=== PATIENT | male | born 1950 | race Caucasian/White ===

== ENCOUNTER 2020-07-26 10:02 | Outpatient (CLI) | payer MEDICARE, OTHER, SELFPAY ==
[2020-07-26 10:40] LABS: Basophils Percent Auto 0.7 % (0.2-1.2); Eosinophils Absolute Auto 0.3 K/mm3 (0-0.3); Hematocrit 40.9 % (42.0-52.0); Hemoglobin 13.8 g/dL (14.0-18.0); Immature Granulocyte Absolute 0.01 K/mm3 (0.00-0.031); Immature Granulocyte Percent A 0.2 % (0-0.5); Lymphocytes Absolute Auto 2.42 K/mm3 (0.9-3.2); Lymphocytes Percent Auto 43.9 % (18.3-44.2); Mean Corpuscular HGB Conc 33.7 g/dl (32-36); Mean Corpuscular Hemoglobin 32.2 pg (26-34); Mean Corpuscular Volume 95.3 fl (80-100); Mean Platelet Volume 12.3 fl (7.4-10.4); Monocytes Absolute Auto 0.4 K/mm3 (0.1-0.6); Monocytes Percent Auto 7.6 % (2.6-8.5); Neutrophils Absolute Auto 2.3 K/mm3 (1.3-6.7); Neutrophils Percent Auto 41.6 % (45.5-73.1); Platelet Count Result 167 k/mm3 (150-375); Red Blood Count 4.29 M/mm3 (4.6-6.20); Red Cell Distribution Width 12.6 % (11.5-14.5); White Blood Count 5.5 K/mm3 (4.5-10.0)
[2020-07-26 10:49] LABS: INR 1.2; Prothrombin Time 14.4 Seconds (11.1-14.7)
[2020-07-26 10:50] LABS: Partial Thromboplastin Time 26.5 SECONDS (22.3-36.8)
[2020-07-26 10:59] LABS: Anion Gap 7 mmol/L (8-16); Blood Urea Nitrogen 42 mg/dL (9-20); Calcium 9.8 mg/dL (8.4-10.2); Carbon Dioxide 33 mmol/L (22-30); Chloride 100 mmol/L (98-107); Estimated Glomerular Filt Rate 50; Glucose 137 mg/dL (75-110); Potassium 4.2 mmol/L (3.4-5.0); Sodium 140 mmol/L (137-145)
== END 2020-07-26 10:03 | disposition home or self-care (01) ==
LOC: ANHSURGERY 10:07
PROVIDERS: PCP Internal Medicine; Visit Provider Urology
DX: Z01.812 Encounter for preprocedural laboratory examination (principal); C67.9 Malignant neoplasm of bladder, unspecified; I25.10 Atherosclerotic heart disease of native coronary artery without angina pectoris; I10 Essential (primary) hypertension; Z95.1 Presence of aortocoronary bypass graft; Z87.891 Personal history of nicotine dependence
CPT/HCPCS: 36415; 80048; 85025; 85610; 85730; 87086

== ENCOUNTER 2020-08-03 00:51 | Outpatient (CLI) | payer MEDICARE, OTHER, SELFPAY ==
[2020-08-03 18:05] LABS: SARS-CoV-2 RNA PCR Negative
== END 2020-08-03 00:52 | disposition home or self-care (01) ==
LOC: ANHCOVIDDT 00:52
PROVIDERS: PCP Internal Medicine; Visit Provider Urology
DX: Z01.812 Encounter for preprocedural laboratory examination (principal); Z20.828 Contact with and (suspected) exposure to other viral communicable diseases
CPT/HCPCS: 87635; C9803; U0003

== ENCOUNTER 2020-08-07 01:48 | Outpatient (CLI) | payer MEDICARE, OTHER, SELFPAY ==
[2020-08-07 18:17] LABS: SARS-CoV-2 RNA PCR Negative
== END 2020-08-07 01:49 | disposition home or self-care (01) ==
LOC: ANHCOVIDDT 01:48
PROVIDERS: PCP Internal Medicine; Visit Provider Urology
DX: Z01.812 Encounter for preprocedural laboratory examination (principal); Z20.828 Contact with and (suspected) exposure to other viral communicable diseases
CPT/HCPCS: 87635; C9803; U0003

== ENCOUNTER 2020-08-09 01:23 | Day surgery (SDC) | payer MEDICARE, OTHER, SELFPAY ==
[2020-07-24 10:24] VITALS: BMI 31.2
--- NOTE | 2020-08-05 09:36 | PC.NURSE ---
PT STATES NO CHANGE IN HEALTH HX SINCE LAST INTERVIEW ON 07/24/20
[2020-08-09] VITALS (18 sets, daily range): BP systolic 84–157; BP diastolic 51–81; PULSE 52–73; RESP 12–20; TEMP 36.5; O2SAT 93–99
[2020-08-09] MEDS: LACTATED RINGERS 1,000 ML 30 ML IV CONT (07:10)
--- NOTE | 2020-08-09 07:19 | WPDANESEPPF ---
Anes - Initial Pre Proc Eval Procedure: Operation Date: 08/09/20 07:30 Proposed Procedures p Transurethral Resection Bladder Tumor With Mitomycin Instillation - Sheldon Harman MD Date/Time: 08/09/20 07:19 Surgeon: Sheldon Harman MD Pre Op Diagnosis: Bladder Tumor Patient Data Age: 70 Gender: M Height: 5 ft 8 in Weight: 93.3 kg Allergies Allergy/AdvReac Type Severity Reaction Status Date / Time niacin Allergy Unknown JAUNDICE, Verified 08/09/20 07:00 INCREASED LIVER ENZYMES Home Medications Medication Instructions Recorded Confirmed Type atenolol 25 mg PO DAILY 09/06/19 08/09/20 History clopidogrel [Plavix] 75 mg PO DAILY 09/06/19 08/09/20 History fenofibrate 160 mg PO DAILY 09/06/19 08/09/20 History omeprazole 20 mg PO DAILY 09/06/19 08/09/20 History rosuvastatin 40 mg PO DAILY 09/06/19 08/09/20 History aspirin [Aspir-81] 81 mg PO DAILY 07/24/20 08/09/20 History cholecalciferol (vitamin D3) 50 mcg PO DAILY 07/24/20 08/09/20 History escitalopram oxalate [Lexapro] 20 mg PO HS 07/24/20 08/09/20 History hydrochlorothiazide 25 mg PO DAILY 07/24/20 08/09/20 History losartan 100 mg PO DAILY 07/24/20 08/09/20 History Patient hx anesthesia problems: none Family hx anesthesia problems: none PMFSH Past Medical History Medical History CAD (coronary artery disease) HTN (hypertension) NANCY (obstructive sleep apnea) Surgical History Surgical History Hx of CABG Social History Social History Smoking status: Former smoker Tobacco type: cigarettes Second hand tobacco smoke exposure: No Additional smoking assessment comments: STATES 1/2PK/DAY/20+YRS QUIT 1995 Alcohol intake: current Alcohol use details: STATES MAYBE 6 DRINKS/YEAR Substance use: never Living arrangements: with family Spiritual care concerns: No Anes - Eval Final PreProcedure Day of Procedure 08/09/20 07:19 Patient weight: obese Lungs: clear to auscultation Airway: Mallampati scale class II Neurological: alert and oriented Last oral intake: >/= 8 hours ASA classification: III Emergent: no Anesthetic plan: proceed Anesthesia type and monitoring: general and standard monitoring Informed Consent: The patient's anesthetic plan and its attendant risks and benefits were discussed with the patient/family/POA. Questions were solicited and answers provided to the satisfaction of the patient/family/POA.
--- NOTE | 2020-08-09 07:25 | WPDHPUPDATE1 ---
History and Physical Update Update Date/Time: 08/09/20 07:25 History and Physical has been reviewed, including an updated exam of the patient. There are NO changes in the patient's condition. Risks, benefits, and alternatives have been discussed and questions answered. Patient agrees to proceed with procedure.
[2020-08-09] MEDS: ceFAZolin 2 GM/D5W 50 ML 2 GM/50 ML BAG IVPB (07:28)
[2020-08-09] MEDS: LIDOCAINE HCL 2% GEL UROJET 10 ML PKG MUCOUS MEM (07:46)
--- NOTE | 2020-08-09 07:57 | P.OP_ITS ---
Procedure Note - Detailed Date of procedure: 08/09/20 Pre-op diagnosis: Bladder Tumor Post-op diagnosis: same Procedure performed: Resection of bladder tumor medium size with fulguration Description of procedure: The patient was brought to the operative suite where he is prepped and draped in a routine sterile fashion while in the dorsal lithotomy position. This is done after the uneventful administration of systemic sedation. A 24F resectoscope sheath was placed in the bladder and the bladder is circumferentially inspected carefully. 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 . This area is resected in its entirety with an attempt made to include detrusor muscle for pathological evaluation of invasion. The base and periphery of this resected side is cauterized with a ball electrode. There was also an area of irregularity along the posterior wall near the floor which was sent as a separate specimen fulgurated. We did fulgurate some erythematous areas around the resected site also. Patient does have an enlarged prostate with a median lobe. The bladder is emptied and the resectoscope was removed. 2% viscous lidocaine was inserted urethra. Sixteen [place] Lopez was placed with 10 cc in the balloon. This will be used to administer mitomycin in the recovery room. The patient is taken to the recovery room having tolerated this procedure well. Anesthesia: GLMA Surgeon: Sheldon Harman MD Drains: Yes Packing: No Pathology: yes Complications: No immediate complications Condition: stable Disposition: PACU
--- NOTE | 2020-08-09 08:33 | SUR.PHASEI ---
0813 DR JACOME INSTILLED MITOMYCIN INTO PTS BLADDER. SARKAR CATHETER PLUGGED. PT CURRENTLY SUPINE.
--- NOTE | 2020-08-09 09:03 | PM.PROC ---
Procedure Note - Detailed Date of procedure: 08/09/20 Pre-op diagnosis: Bladder Tumor Post-op diagnosis: same Procedure performed: Mitomycin installation Description of procedure: Patient is in the recovery room at this time. Sixteen [place] Lopez is in place. We injected the mitomycin 40 mg/40 cc without any difficulty. Patient is instructed to rotate every 15 minutes. Catheter was removed at termination of procedure. Anesthesia: none Surgeon: Sheldon Harman MD Drains: Yes Packing: No Pathology: none sent Complications: No immediate complications Condition: stable Disposition: PACU
[2020-08-09] MEDS: fentaNYL CITRATE INJ (*CRX) 100 MCG/2 ML VIAL 25 MCG IV PUSH ×4 (09:18→13:25)
[2020-08-09] MEDS: HYOSCYAMINE SULFATE 0.125 MG TABLET PO (10:15)
[2020-08-09] MEDS: oxyCODONE HCL (*CRX) 5 MG TAB IR PO (11:07)
--- NOTE | 2020-08-09 15:55 | SUR.PHASEII ---
1045 - pt's bladder scanned - 60 mls in bladder 1150 - dr. saleh called in regards to pt not being able to urinate. 1200 - bladder scanned with 250-300 mls of urine noted. dr. saleh called and order received for catheter. pt to go home with catheter and can remove it in the morning.
== END 2020-08-09 14:30 | disposition home or self-care (01) ==
PROVIDERS: PCP Internal Medicine; Visit Provider Urology
PROC: 0TBB8ZZ Excision of Bladder, Via Natural or Artificial Opening Endoscopic (ICD-10-PCS; CPT 52234; principal; 2020-08-09 07:30)
DX: N32.89 Other specified disorders of bladder (principal); Z85.51 Personal history of malignant neoplasm of bladder; I10 Essential (primary) hypertension; I25.10 Atherosclerotic heart disease of native coronary artery without angina pectoris; G47.33 Obstructive sleep apnea (adult) (pediatric); Z79.02 Long term (current) use of antithrombotics/antiplatelets; Z79.82 Long term (current) use of aspirin; Z87.891 Personal history of nicotine dependence; E66.9 Obesity, unspecified; Z68.31 Body mass index [BMI] 31.0-31.9, adult
CPT/HCPCS: 52234; 51720; 88305; A9270; J0690; J1100; J2250; J2405; J2704; J3010; J7120; J9280

== ENCOUNTER 2021-06-02 07:54 | Inpatient (IN) | payer MEDICARE, OTHER, SELFPAY ==
--- NOTE | ~2021-06-02 | US_ITS ---
EXAMINATION: US right upper quadrant DATE: 06/02/2021 08:38 INDICATION: Right upper quadrant abdominal pain. TECHNIQUE: Multiple grayscale and Doppler ultrasound images of the abdomen were obtained. COMPARISON: None FINDINGS: The visualized portions of the head of the pancreas are normal. There is diffuse hepatic st eatosis. There is normal flow in main portal vein. The gallbladder is normal in size. No gallstones o r gallbladder wall thickening. There was a positive sonographic Pal sign. The common duct is marianne l and measures 5 mm. IMPRESSION: 1. Normal gallbladder. No etiology for the positive sonographic Pal sign. 2. Diffuse hepatic steatosis. Reviewed, dictated and finalized at location A.
--- NOTE | ~2021-06-02 | CT_ITS ---
EXAMINATION: CT abdomen pelvis w con DATE: 06/02/2021 09:36 INDICATION: Right upper quadrant abdominal pain TECHNIQUE: Computed tomography (CT) of the abdomen and pelvis was performed with 100 mL Omnipaque-350 intravenous contrast. Automated exposure control and iterative reconstruction technique were employe d. The dose-length product was 894.55 mGy-cm. COMPARISON: None FINDINGS: Minimal atelectasis in the bilateral lower lobes. Heart size is normal. No pericardial or pleural eff usion. Postoperative change of prior median sternotomy and likely coronary artery bypass grafting. Di ffuse hepatic steatosis. Gallbladder is dilated to 4.5 cm without wall thickening but with small amou nt of pericholecystic stranding and fluid consistent with likely early acute cholecystitis. Pancreas, spleen and bilateral adrenal glands are normal. Bilateral renal cysts measuring up to 2.9 cm on the left and 2.1 cm on the right. There is mild colonic diverticulosis with a sigmoid predominance. Ther e is no adjacent inflammatory change to suggest diverticulitis. Small bowel and appendix are normal. Prostatomegaly. Trace amount of gas in the nondependent bladder. No abscess or free intraperitoneal g as. No pathologically enlarged abdominal or pelvic lymphadenopathy. Severe lumbar and lower thoracic spondylosis. IMPRESSION: 1. Gallbladder dilated to 4.5 cm with small amount pericholecystic stranding and fluid consistent wit h likely early acute cholecystitis. 2. Trace amount of gas in the nondependent bladder. Correlate with urinalysis and for recent instrume ntation or Lopez catheterization. 3. Diffuse hepatic steatosis. 4. Mild sigmoid diverticulosis. 5. Prostatomegaly. Reviewed, dictated and finalized at location B. IMPRESSION: 1. Gallbladder dilated to 4.5 cm with small amount pericholecystic stranding an d fluid consistent with likely early acute cholecystitis. 2. Trace amount of gas in the nondependent bladder. Correlate with urinalysis a nd for recent instrumentation or Lopez catheterization. 3. Diffuse hepatic steatosis. 4. Mild sigmoid diverticulosis. 5. Prostatomegaly.
--- NOTE | 2021-06-02 08:11 | ECG_ITS ---
Measurements Intervals [place] Rate: 68 P: 50 DE: 255 QRS: -9 QRSD: 170 T: 25 QT: 445 QTc: 477 Interpretive Statements SINUS RHYTHM WITH FIRST DEGREE AV BLOCK VENTRICULAR PREMATURE COMPLEX RIGHT BUNDLE BRANCH BLOCK ABNORMAL ECG Electronically Signed On 06-02-2021 9:18:56 CDT by Francisco De La Garza D.O.
[2021-06-02 08:13] VITALS: BP 151/80; PULSE 72; RESP 17; TEMP 36.6; O2SAT 100
[2021-06-02 08:25] LABS: Basophils Percent Auto 0.4 % (0.2-1.2); Eosinophils Absolute Auto 0.2 K/mm3 (0-0.3); Eosinophils Percent Auto 2.8 % (0-4.4); Hemoglobin 14.8 g/dL (14.0-18.0); Immature Granulocyte Absolute 0.02 K/mm3 (0.00-0.031); Immature Granulocyte Percent A 0.2 % (0-0.5); Lymphocytes Absolute Auto 1.63 K/mm3 (0.9-3.2); Lymphocytes Percent Auto 19.7 % (18.3-44.2); Mean Corpuscular HGB Conc 33.6 g/dl (32-36); Mean Corpuscular Hemoglobin 32.8 pg (26-34); Mean Corpuscular Volume 97.6 fl (80-100); Mean Platelet Volume 12.2 fl (7.4-10.4); Monocytes Absolute Auto 0.6 K/mm3 (0.1-0.6); Monocytes Percent Auto 7.2 % (2.6-8.5); Neutrophils Absolute Auto 5.8 K/mm3 (1.3-6.7); Neutrophils Percent Auto 69.7 % (45.5-73.1); Platelet Count Result 160 k/mm3 (150-375); Red Blood Count 4.51 M/mm3 (4.6-6.20); Red Cell Distribution Width 12.5 % (11.5-14.5); White Blood Count 8.3 K/mm3 (4.5-10.0)
[2021-06-02] MEDS: FAMOTIDINE 20 MG/2 ML VIAL IV PUSH (08:36)
[2021-06-02] MEDS: SODIUM CHLORIDE 0.9% IV 1,000 ML 150 ML IV CONT (08:36)
[2021-06-02 08:42] LABS: Alanine Aminotransferase 39 U/L (4-50); Albumin Level 4.7 g/dL (3.5-5.1); Alkaline Phosphatase 62 U/L (38-126); Anion Gap 10 mmol/L (8-16); Aspartate Amino Transferase 41 U/L (17-59); Bilirubin,Total 0.8 mg/dL (0.2-1.3); Blood Urea Nitrogen 28 mg/dL (9-20); Calcium 10.1 mg/dL (8.4-10.2); Carbon Dioxide 26 mmol/L (22-30); Chloride 102 mmol/L (98-107); Estimated CRCL calculation 65 ml/min; Estimated Glomerular Filt Rate > 60; Glucose 196 mg/dL (65-110); Lipase 148 U/L (23-300); Potassium 3.6 mmol/L (3.4-5.0); Sodium 138 mmol/L (137-145)
[2021-06-02 09:02] LABS: Add Urine Microscopic? YES; Appearance Urine Clear (Clear); Bilirubin Urine Negative (Negative); Blood Urine Negative (Negative); Color Urine Yellow (Yellow); Glucose Urine UA 2+ mg/dL (Negative); Ketones Urine Negative (Negative); Leukocyte Esterase Ur Negative LEU/UL (Negative); Mucus Urine Rare /lpf; Nitrate Urine Negative (Negative); Protein Urine 1+ mg/dL (Negative); RBC Urine 0-2 /hpf (0-2); Specific Grav Ur 1.026 (1.001-1.035); Squamous Epithelial Cell Urine Rare /hpf (Few)
[2021-06-02] MEDS: MORPHINE SULFATE (*CRX) 4 MG/ML INJ IV PUSH (09:40)
[2021-06-02 10:47] VITALS: BP 140/85; PULSE 88; RESP 17; O2SAT 100
--- NOTE | 2021-06-02 11:08 | ED.ABDPAIN ---
HPI - Abdominal Pain General Chief Complaint: Abdominal Pain Stated Complaint: Abd pain Time Seen by Provider: 06/02/21 07:58 Source: patient Mode of arrival: ambulatory Limitations: no limitations History of Present Illness HPI narrative: 71-year-old with a history of hypertension, GERD, CAD s/p CABG here with complaints of right upper quadrant and epigastric pain since 330 this morning. Patient states that pain woke him up from sleep. Patient states that pain is constant in nature. Denies nausea vomiting no history of fever or chills. He denies any chest pain. Related Data Home Medications Medication Instructions Recorded Confirmed atenolol 25 mg PO DAILY 09/06/19 08/09/20 clopidogrel [Plavix] 75 mg PO DAILY 09/06/19 08/09/20 fenofibrate 160 mg PO DAILY 09/06/19 08/09/20 omeprazole 20 mg PO DAILY 09/06/19 08/09/20 rosuvastatin 40 mg PO DAILY 09/06/19 08/09/20 aspirin 81 mg PO DAILY 07/24/20 08/09/20 cholecalciferol (vitamin D3) 50 mcg PO DAILY 07/24/20 08/09/20 escitalopram oxalate [Lexapro] 20 mg PO HS 07/24/20 08/09/20 hydrochlorothiazide 25 mg PO DAILY 07/24/20 08/09/20 losartan 100 mg PO DAILY 07/24/20 08/09/20 Allergies Allergy/AdvReac Type Severity Reaction Status Date / Time niacin Allergy Unknown JAUNDICE, Verified 08/09/20 07:00 INCREASED LIVER ENZYMES Review of Systems Review of Systems: All systems reviewed & are unremarkable except as noted in HPI and below Constitutional: Constitutional: Reports no additional constitutional complaints Eyes: Eyes: Reports no additional eye complaints ENT: Reports system reviewed and no additional complaints, except as documented Cardiovascular: Cardiovascular: Reports no additional cardiovascular complaints Respiratory: Respiratory: Reports no additional respiratory complaints Gastrointestinal: Gastrointestinal: Reports as per HPI Musculoskeletal: Musculoskeletal: Reports no additional musculoskeletal complaints Integumentary/Breasts: Skin/Breast: Reports system reviewed and no additional complaints, except as docu Neurologic: Reports system reviewed and no additional complaints, except as documented PMFSH Past Medical History Medical History CAD (coronary artery disease) HTN (hypertension) NANCY (obstructive sleep apnea) Surgical History Surgical History Hx of CABG Social History Social History Smoking status: Former smoker Tobacco type: cigarettes Second hand tobacco smoke exposure: No Additional smoking assessment comments: STATES 1/2PK/DAY/20+YRS QUIT 1995 Alcohol intake: current Alcohol use details: STATES MAYBE 6 DRINKS/YEAR Substance use: never Spiritual care concerns: No Exam Narrative: GENERAL: Well-appearing, well-nourished, and in no acute distress. HEAD: Normocephalic, atraumatic. EYES: PERRLA and EOMI. NECK: Supple. CHEST: Clear to auscultation. No respiratory distress. HEART: Regular rate and rhythm. No murmur heard. Normal peripheral pulses. ABDOMEN: Soft, tender in the epigastric and right upper quadrant area, nondistended, normal active bowel sounds. EXTREMITIES: Normal range of motion. No edema. SKIN: Warm, dry, no rash. NEURO: No focal deficits. Alert and oriented x3. PSYCH: Normal mood and affect. Course Course Emergency Course: Patient continues to have pain in the right upper quadrant area. I have discussed lab work and CT findings with the patient. Discussed with Dr. Vasquez agreed to admit the patient Vital Signs Vital signs: Vital Signs Temperature 36.6 C 06/02/21 08:13 Pulse Rate 72 06/02/21 08:13 Respiratory Rate 17 06/02/21 08:13 Blood Pressure 151/80 H 06/02/21 08:13 Pulse Oximetry 100 06/02/21 08:13 Temperature 36.6 C 06/02/21 08:13 Pulse Rate 88 06/02/21 10:47 Respiratory Rate 17
[2021-06-02] MEDS: ERTAPENEM 1 GM/NS 50 ML 1 GM/50 ML BAG IVPB (12:10)
[2021-06-02 13:44] VITALS: BP 147/80; PULSE 61; RESP 18; O2SAT 100
[2021-06-02 15:11] LABS: Glucose Point of Care 140 mg/dl (65-105)
[2021-06-02 16:06] VITALS: BP 136/87; PULSE 88; RESP 17; O2SAT 100
[2021-06-02] MEDS: SODIUM CHLORIDE 0.9% IV 1,000 ML 125 ML IV CONT (17:43)
--- NOTE | 2021-06-02 17:43 | PM.IMHP ---
H&P: HPI History of Present Illness Date/Time: 06/02/21 17:43 Chief Complaint: Right upper quadrant pain Narrative: this is a 71-year-old man who presented to the emergency department this morning with right upper quadrant pain. He states that the pain started around 3:00 a.m. in the morning. He continued to have worsening pain and was also complaining of some general body aches. He denies any fevers or chills, but states he did feel slightly feverish. Has pain continued throughout the morning, therefore he told his when she woke up and he came to the emergency department for further evaluation. He has never had any symptoms like this in the past. He did eat fried chicken around lunch time yesterday, but only ate a sandwich for dinner. He has continued to have constant pain since the pain for started. Review of Systems Review of Systems: All systems reviewed & are unremarkable except as noted in HPI and below Eyes: Eyes: Denies change in vision ENT: Denies hearing loss, Denies neck pain and Denies sore throat Cardiovascular: Cardiovascular: Denies chest pain and Denies dyspnea Respiratory: Respiratory: Denies cough, Denies dyspnea and Denies wheezing Gastrointestinal: Gastrointestinal: Reports as per HPI Genitourinary: Genitourinary: Denies hematuria and Denies dysuria Musculoskeletal: Musculoskeletal: Denies arthralgias, Denies joint swelling and Denies neck pain Allergic/Immunologic: Allergic/Immunologic: Denies wheezing [facility] Past Medical History Medical History (Updated 06/02/21 @ 17:47 by Damian Vasquez DO) CAD (coronary artery disease) HTN (hypertension) NANCY (obstructive sleep apnea) Surgical History Surgical History Hx of CABG Social History Social History Smoking status: Former smoker Tobacco type: cigarettes Second hand tobacco smoke exposure: No Additional smoking assessment comments: STATES 1/2PK/DAY/20+YRS QUIT 1995 Alcohol intake: current Alcohol use details: STATES MAYBE 6 DRINKS/YEAR Substance use: never Spiritual care concerns: No Meds Home Medications and Allergies Home Medications Medication Instructions Recorded Confirmed Type atenolol 25 mg PO DAILY 09/06/19 08/09/20 History clopidogrel [Plavix] 75 mg PO DAILY 09/06/19 08/09/20 History fenofibrate 160 mg PO DAILY 09/06/19 08/09/20 History omeprazole 20 mg PO DAILY 09/06/19 08/09/20 History rosuvastatin 40 mg PO DAILY 09/06/19 08/09/20 History aspirin 81 mg PO DAILY 07/24/20 08/09/20 History cholecalciferol (vitamin D3) 50 mcg PO DAILY 07/24/20 08/09/20 History escitalopram oxalate [Lexapro] 20 mg PO HS 07/24/20 08/09/20 History hydrochlorothiazide 25 mg PO DAILY 07/24/20 08/09/20 History losartan 100 mg PO DAILY 07/24/20 08/09/20 History Allergies Allergy/AdvReac Type Severity Reaction Status Date / Time niacin Allergy Unknown JAUNDICE, Verified 08/09/20 07:00 INCREASED LIVER ENZYMES Vital Signs Vital Signs - 24 hr 06/02/21 08:13 06/02/21 10:47 06/02/21 13:44 Temperature 36.6 C Pulse Rate 72 88 61 Respiratory Rate 17 17 18 Blood Pressure 151/80 H 140/85 147/80 H Pulse Oximetry 100 100 100 06/02/21 16:06 Temperature Pulse Rate 88 Respiratory Rate 17 Blood Pressure 136/87 Pulse Oximetry 100 Exam Const: General: alert; No acute distress Orientation/consciousness: patient oriented x3 Limitations: no limitations HENMT: Head: normocephalic and atraumatic Ears: hearing grossly normal bilaterally General nose exam: Normal external nose present and Normal nares present Mouth: Yes Normal oral and palatal mucosa present and Yes moist mucous membranes Eyes: General: appearance normal, both eyes and all related structures Conjunctivae: conjunctivae normal Sclera: sclerae normal Pupils: Equal, round and reactive pupils present EOM: EOMs intact
[2021-06-02 17:48] VITALS: BP 149/78; PULSE 63; RESP 18; TEMP 35.7; O2SAT 100
--- NOTE | 2021-06-02 18:12 | ADMGEN ---
This patient, Archie Wallace, was admitted to Medical Room 342-01. Patient/family oriented to hospital policies and general routines including ID bracelet, bed and alarms, visiting hours, pain management, procedures, bathroom and other care routines, personal items, smoking policy, room service/diet, and visiting hours. Information on how to activate the Rapid Response Team has been discussed. Patient/Family are encouraged to report perceived risks to care and to ask questions if they do not understand what they are told or what they should do.
[2021-06-02 18:41] LABS: Glucose Point of Care 112 mg/dl (65-105)
[2021-06-02 20:24] VITALS: BP 130/78; PULSE 67; RESP 16; TEMP 35.9; O2SAT 97
[2021-06-02 23:20] LABS: Glucose Point of Care 98 mg/dl (65-105)
[2021-06-03] VITALS (14 sets, daily range): BP systolic 102–140; BP diastolic 54–71; PULSE 66–85; RESP 12–20; TEMP 35.9–37.2; O2SAT 90–100
[2021-06-03] MEDS: SODIUM CHLORIDE 0.9% IV 1,000 ML 125 ML IV CONT (02:25)
[2021-06-03 05:55] LABS: Glucose Point of Care 122 mg/dl (65-105)
[2021-06-03 06:10] LABS: Basophils Percent Auto 0.6 % (0.2-1.2); Eosinophils Absolute Auto 0.2 K/mm3 (0-0.3); Eosinophils Percent Auto 4.2 % (0-4.4); Hematocrit 38.9 % (42.0-52.0); Immature Granulocyte Absolute 0.01 K/mm3 (0.00-0.031); Immature Granulocyte Percent A 0.2 % (0-0.5); Lymphocytes Absolute Auto 1.94 K/mm3 (0.9-3.2); Mean Corpuscular HGB Conc 33.4 g/dl (32-36); Mean Corpuscular Volume 95.8 fl (80-100); Mean Platelet Volume 11.8 fl (7.4-10.4); Monocytes Absolute Auto 0.5 K/mm3 (0.1-0.6); Monocytes Percent Auto 8.8 % (2.6-8.5); Neutrophils Absolute Auto 2.6 K/mm3 (1.3-6.7); Neutrophils Percent Auto 49.2 % (45.5-73.1); Platelet Count Result 144 k/mm3 (150-375); Red Blood Count 4.06 M/mm3 (4.6-6.20); Red Cell Distribution Width 12.2 % (11.5-14.5); White Blood Count 5.3 K/mm3 (4.5-10.0)
[2021-06-03 06:13] LABS: Alanine Aminotransferase 29 U/L (4-50); Alkaline Phosphatase 46 U/L (38-126); Anion Gap 8 mmol/L (8-16); Aspartate Amino Transferase 35 U/L (17-59); Bilirubin,Total 0.9 mg/dL (0.2-1.3); Blood Urea Nitrogen 19 mg/dL (9-20); Calcium 8.9 mg/dL (8.4-10.2); Carbon Dioxide 26 mmol/L (22-30); Chloride 101 mmol/L (98-107); Estimated CRCL calculation 80 ml/min; Estimated Glomerular Filt Rate > 60; Glucose 123 mg/dL (65-110); Potassium 3.5 mmol/L (3.4-5.0); Sodium 135 mmol/L (137-145)
--- NOTE | 2021-06-03 08:15 | WPDANESEPPF ---
Anes - Initial Pre Proc Eval Procedure: Operation Date: 06/03/21 12:00 Proposed Procedures p Laparoscopic Cholecystectomy,Possible Open - Damian Vasquez DO Date/Time: 06/03/21 08:15 Surgeon: Damian Vasquez DO Pre Op Diagnosis: Acute cholecystitis Patient Data Age: 71 Gender: M Height: 1.73 m Weight: 94.09 kg Last Vital Signs Temp 36.2 C L 06/03/21 05:39 Pulse 66 06/03/21 05:39 Resp 16 06/03/21 05:39 BP 135/69 06/03/21 05:39 Pulse Ox 98 06/03/21 05:39 Allergies Allergy/AdvReac Type Severity Reaction Status Date / Time niacin Allergy Unknown JAUNDICE, Verified 08/09/20 07:00 INCREASED LIVER ENZYMES Home Medications Medication Instructions Recorded Confirmed Type atenolol 25 mg PO DAILY 09/06/19 06/02/21 History clopidogrel [Plavix] 75 mg PO DAILY 09/06/19 06/02/21 History fenofibrate 160 mg PO DAILY 09/06/19 06/02/21 History omeprazole 20 mg PO DAILY 09/06/19 06/02/21 History rosuvastatin 40 mg PO DAILY 09/06/19 06/02/21 History aspirin 81 mg PO DAILY 07/24/20 06/02/21 History cholecalciferol (vitamin D3) 50 mcg PO DAILY 07/24/20 06/02/21 History escitalopram oxalate [Lexapro] 20 mg PO HS 07/24/20 06/02/21 History hydrochlorothiazide 25 mg PO DAILY 07/24/20 06/02/21 History losartan 100 mg PO DAILY 07/24/20 06/02/21 History ezetimibe [Zetia] 10 mg PO DAILY 06/02/21 06/02/21 History Laboratory Tests 06/02/21 06/02/21 06/02/21 08:18 08:18 08:34 WBC 8.3 K/mm3 K/mm3 (4.5-10.0) RBC 4.51 M/mm3 L M/mm3 (4.6-6.20) Hgb 14.8 g/dL g/dL (14.0-18.0) Hct 44.0 % % (42.0-52.0) MCV 97.6 fl fl (80-100) MCH 32.8 pg pg (26-34) MCHC 33.6 g/dl g/dl (32-36) RDW 12.5 % % (11.5-14.5) Plt Count 160 k/mm3 k/mm3 (150-375) MPV 12.2 fl H fl (7.4-10.4) Immature Gran % (Auto) 0.2 % % (0-0.5) Neut % (Auto) 69.7 % % (45.5-73.1) Lymph % (Auto) 19.7 % % (18.3-44.2) [place] % (Auto) 7.2 % % (2.6-8.5) Eos % (Auto) 2.8 % % (0-4.4) Baso % (Auto) 0.4 % % (0.2-1.2) Lymph # (Auto) 1.63 K/mm3 K/mm3 (0.9-3.2) [place] # (Auto) 0.6 K/mm3 K/mm3 (0.1-0.6) Eos # (Auto) 0.2 K/mm3 K/mm3 (0-0.3) Baso # (Auto) 0.0 K/mm3 K/mm3 (0.0-0.1) Abs Immat Gran (auto) 0.02 K/mm3 K/mm3 (0.00-0.031) Absolute Neuts (auto) 5.8 K/mm3 K/mm3 (1.3-6.7) Absolute Nucleated RBC 0.0 K/mm3 K/mm3 (0.0-0.012) Nucleated RBC % 0.0 % % (0.0-0.2) Sodium 138 mmol/L mmol/L (137-145) Potassium 3.6 mmol/L mmol/L (3.4-5.0) Chloride 102 mmol/L mmol/L (98-107) Carbon Dioxide 26 mmol/L mmol/L (22-30) Anion Gap 10 mmol/L mmol/L (8-16) BUN 28 mg/dL H D mg/dL (9-20) Creatinine 1.00 mg/dL mg/dL (0.7-1.3) Estim Creat Clear Calc 65 ml/min ml/min Estimated GFR > 60 (59 - ) Glucose 196 mg/dL H mg/dL (65-110) POC Capillary Glucose Calcium 10.1 mg/dL mg/dL (8.4-10.2) Total Bilirubin 0.8 mg/dL mg/dL (0.2-1.3) AST 41 U/L U/L (17-59) ALT 39 U/L U/L (4-50) Alkaline Phosphatase 62 U/L U/L (38-126) Total Protein 8.0 g/dL g/dL (6.3-8.2) Albumin 4.7 g/dL g/dL (3.5-5.1) Lipase 148 U/L U/L (23-300) Urine Color Yellow (Yellow) Urine Appearance Clear (Clear) Urine pH 5.0 (5.0-9.0) Ur Specific [place] 1.026 (1.001-1.035) Urine Protein 1+ mg/dL H mg/dL (Negative) Urine Glucose (UA) 2+ mg/dL H mg/dL (Negative) Urine Ketones Negative mg/dL mg/dL (Negative) Ur Blood (Man) Negative (Negative) Urine Nitrate Negative (Negative) Urine Bilirubin Negative (
--- NOTE | 2021-06-03 09:54 | PM.CNCAR ---
Assessment and Plan Assessment and plan (1) Preop cardiovascular exam: Code(s): Z01.810 - Encounter for preprocedural cardiovascular examination Status: Acute Assessment and Plan: Patient had a coronary angiogram in October of 2020. No intravitreal performed at that time. He has no anginal symptoms and can perform greater than 4 Mets. No further testing is needed prior to his laparoscopic cholecystectomy. His aspirin and clopidogrel have been on hold and therefore would recommend simply proceeding with surgery. Will resume his atenolol 25 mg daily. He should have his other home regimen reinstituted postoperatively including is aspirin and clopidogrel when okay with surgery. His potassium is low normal give him 40 mEq of potassium chloride p.o. x1 (2) CAD (coronary artery disease): Code(s): I25.10 - Atherosclerotic heart disease of creek coronary artery without angina pectoris Status: Acute Assessment and Plan: As detailed above and Asymptomatic (3) HTN (hypertension): Code(s): I10 - Essential (primary) hypertension Status: Acute Assessment and Plan: At goal (4) NANCY (obstructive sleep apnea): Code(s): G47.33 - Obstructive sleep apnea (adult) (pediatric) Status: Acute Assessment and Plan: On CPAP (5) Hypercholesterolemia: Code(s): E78.00 - Pure hypercholesterolemia, unspecified Status: Acute Assessment and Plan: On high-dose rosuvastatin History of Present Illness History of Present Illness Consult date/time: 06/03/21 09:54 Requesting physician: Damian Vasquez DO Consult reason: pre-op evaluation Reason For Visit: Acute cholecystitis Narrative: Date of service 06/03/2021 Reason for consultation preoperative risk evaluation Requesting provider Dr. 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 Had a bypass in 1995 as well as coronary angioplasty well before that. His last intervention was in 2016. He had a catheterization in October of 2020 at [facility] because of an abnormal stress tests with reported mild ischemia in inferolateral wall. Catheterization showed a patent WEISS graft with a 60% creek LAD disease. There was some kinking and tortuosity of the WEISS graft. Patent stents to the vein graft to the RCA and his chronically occluded circumflex filled via collaterals. He continued to be treated medically at that point. He denies any chest pain, shortness of breath, syncope, presyncope, paroxysmal nocturnal dyspnea, orthopnea, edema palpitations. He is active. Review of Systems Review of Systems: All systems reviewed & are unremarkable except as noted in HPI and below Constitutional: Constitutional: Denies fatigue and Denies weakness Eyes: Eyes: Denies blurry vision ENT: Reports Normal hearing present Cardiovascular: Cardiovascular: Denies chest pain Respiratory: Respiratory: Denies dyspnea Gastrointestinal: Gastrointestinal: Reports abdominal pain Genitourinary: Genitourinary: Denies dysuria Musculoskeletal: Musculoskeletal: Denies back pain and Denies neck pain Integumentary/Breasts: Skin/Breast: Denies dry skin Neurologic: Denies headache(s) and Denies numbness Psychiatric: Psychiatric: Denies anxiety and Denies confusion Endocrine: Endocrine: Denies fatigue and Denies flushing Hematologic/Lymphatic: Hematologic/Lymphatic: Denies easy bleeding and Denies easy bruising Allergic/Immunologic: Allergic/Immunologic: Denies GI upset with certain foods PMFSH Past Medical History Medical History Acute cholecystitis Bladder cancer BPH (benign prostatic hyperplasia) CAD (coronary artery disease) CHF (congestive heart failure) Depression HTN (hypertension) Hx of myocardial infarction Hypercholesterolemia Obesity NANCY (obstructive sleep apnea) Surgical Hi
[2021-06-03] MEDS: LACTATED RINGERS 1,000 ML 30 ML IV CONT ×2 (11:30→13:46)
--- NOTE | 2021-06-03 11:37 | WPDHPUPDATE1 ---
History and Physical Update Update Date/Time: 06/03/21 11:37 History and Physical has been reviewed, including an updated exam of the patient. There are NO changes in the patient's condition. Risks, benefits, and alternatives have been discussed and questions answered. Patient agrees to proceed with procedure.
[2021-06-03] MEDS: ceFAZolin 2 GM/D5W 50 ML 2 GM/50 ML BAG IVPB (12:05)
[2021-06-03] MEDS: BUPIVACAINE/EPINEPHRINE 0.5% 30 ML VIAL INFILTRATE (12:39)
--- NOTE | 2021-06-03 13:29 | W.PM.PROC2 ---
Procedure Note - Detailed Date of Procedure 06/03/21 Pre-op Diagnosis Acute cholecystitis Post-op Diagnosis same Procedure Performed Laparoscopic Cholecystectomy Surgeon Damian Vasquez, DO Anesthesia general and local (0.5% bupivacaine with epinephrine) Indications This is a 71-year-old man who presented to the emergency department yesterday with right upper quadrant abdominal pain that woke him up in the middle the night. He continued to have constant right upper quadrant pain which then brought him to the ED. ultrasound was initially done and this was normal except he did have a positive sonographic Pal sign. CT of his abdomen and pelvis was then obtained and this did show evidence of gallbladder wall thickening and pericholecystic fluid. Discussions were made with the patient about treatment options and decision was made to proceed with laparoscopic cholecystectomy, possible open. Findings Laparoscopic cholecystectomy was performed. The abdomen was entered in the left subcostal region with an Optiview trocar due to the patient's prior surgical history of umbilical hernia repair with mesh. Upon entering the abdomen, adhesions were identified in the mid abdomen. These adhesions also extended into the right upper quadrant. All of the adhesions appeared to involve omentum, and no bowel was identified while taking down these adhesions. The adhesions were carefully taken down using scissors laparoscopically. Electrocautery was used sparingly where there was bleeding noted. Eventually I was able to identify the right lobe of the liver and then I identified the gallbladder. I was then able to complete the remainder of the portion in the typical fashion laparoscopically. The gallbladder did have some gallbladder wall thickening, but no definite gallstones were identified. The cystic duct appeared normal in size. The gallbladder was removed and sent to the lab for pathology. Description of Procedure Procedure as well as risks, benefits, and alternatives were discussed with patient. Written consent was obtained and placed in chart prior to procedure. The patient was brought back to surgical suite. Patient was placed in supine position on operating table. Time-out was done to confirm patient and procedure. Patient was then intubated by the anesthesia department. Abdomen was prepped and draped in sterile fashion using chlorhexidine prep. 0.5% bupivacaine with epinephrine was infiltrated at each site of incision. A 5 millimeter incision was made in the left subcostal region, and a 5 millimeter Optiview trocar was advanced through the abdominal layers under direct visualization. Once inside the abdominal cavity, carbon dioxide was insufflated to create a pneumoperitoneum. The camera was inserted and the abdomen was inspected. Adhesions were identified in the mid abdomen. Another 5 mm incision was made in the left lateral abdomen and a 5 mm trocar was inserted under direct visualization. Laparoscopic adhesiolysis was carried out using Metzenbaum scissors. Eventually all of the adhesions were able to be taken down to visualize the central abdominal wall and right upper quadrant. A 5 mm incision was made just superior and to the right of the umbilicus and a 5 mm trocar was inserted under direct visualization. The patient was placed in reverse Trendelenburg position and rotated slightly to the left. An 11 millimeter incision was made in the subxiphoid region, and an 11 millimeter trocar was inserted under direct visualization. Two 5 millimeter incisions were made in the right upper quadrant, and two 5 millimeter trocars were inserted under direct visualization. The gallbladder was identified and grasped at the fundus and retracted superiorly. It was then grasped at the infundibulum retracted laterally. Careful dissection around the neck of the gallbladder was performed using blunt dissection with a [place] grasper and hook electrocautery. The cystic
[2021-06-03 14:08] LABS: Glucose Point of Care 167 mg/dl (65-105)
[2021-06-03] MEDS: atenoloL 25 MG TABLET PO (16:56)
[2021-06-03] MEDS: HYDROcodone/acetaminophen (*CRX) 5-325 MG TABLET 1 TAB PO (17:00)
[2021-06-03] MEDS: LACTATED RINGERS 1,000 ML 100 ML IV CONT (17:00)
[2021-06-03 18:21] LABS: Glucose Point of Care 159 mg/dl (65-105)
[2021-06-04 01:06] VITALS: BP 110/62; PULSE 75; RESP 18; TEMP 36; O2SAT 94
[2021-06-04 04:42] VITALS: BP 120/68; PULSE 64; RESP 18; TEMP 36.2; O2SAT 95
[2021-06-04 05:59] LABS: Hematocrit 38.2 % (42.0-52.0); Hemoglobin 12.6 g/dL (14.0-18.0); Mean Platelet Volume 12.3 fl (7.4-10.4); Platelet Count Result 150 k/mm3 (150-375); Red Blood Count 3.94 M/mm3 (4.6-6.20); Red Cell Distribution Width 12.2 % (11.5-14.5); White Blood Count 8.7 K/mm3 (4.5-10.0)
[2021-06-04 06:09] LABS: Anion Gap 4 mmol/L (8-16); Blood Urea Nitrogen 18 mg/dL (9-20); Calcium 9.2 mg/dL (8.4-10.2); Carbon Dioxide 29 mmol/L (22-30); Chloride 104 mmol/L (98-107); Estimated CRCL calculation 59 ml/min; Estimated Glomerular Filt Rate > 60; Glucose 156 mg/dL (65-110); Potassium 4.6 mmol/L (3.4-5.0); Sodium 137 mmol/L (137-145)
[2021-06-04 10:00] VITALS: BP 105/54; PULSE 50; RESP 16; TEMP 36.1; O2SAT 96
--- NOTE | 2021-06-04 10:34 | PM.PNCARD ---
Progress Note: A&P Assessment and Plan (1) Preop cardiovascular exam: Code(s): Z01.810 - Encounter for preprocedural cardiovascular examination Status: Acute Assessment and Plan: Patient had a coronary angiogram in October of 2020. He is doing fine at this point. He did well with his operation and my recommendation is to resume his cardiac regimen. Recommend starting his aspirin and clopidogrel if okay with surgery. He should be discharged with a standard home regimen including statin, fenofibrate, Zetia, losartan, hydrochlorothiazide and atenolol in addition to dual anti-platelet therapy. Okay for discharge from my perspective (2) CAD (coronary artery disease): Code(s): I25.10 - Atherosclerotic heart disease of [place] coronary artery without angina pectoris Status: Acute Assessment and Plan: As detailed above and Asymptomatic (3) HTN (hypertension): Code(s): I10 - Essential (primary) hypertension Status: Acute Assessment and Plan: At goal (4) NANCY (obstructive sleep apnea): Code(s): G47.33 - Obstructive sleep apnea (adult) (pediatric) Status: Acute Assessment and Plan: On CPAP (5) Hypercholesterolemia: Code(s): E78.00 - Pure hypercholesterolemia, unspecified Status: Acute Assessment and Plan: On high-dose rosuvastatin Subjective Date/time seen: 06/04/21 10:34 Interval history: 71-year-old with cholecystitis. Date of service 06/04/2021: He did well with surgery ST. Has some abdominal soreness but otherwise doing okay and has no chest pain or shortness of breath. Review of Systems Review of Systems: All systems reviewed & are unremarkable except as noted in HPI and below Constitutional: Constitutional: Denies fatigue, Denies headache(s) and Denies weakness Eyes: Eyes: Denies blurry vision ENT: Reports Normal hearing present, Denies headache(s) and Denies neck pain Cardiovascular: Cardiovascular: Denies chest pain and Denies dyspnea Respiratory: Respiratory: Denies dyspnea Gastrointestinal: Gastrointestinal: Reports abdominal pain Genitourinary: Genitourinary: Denies dysuria Musculoskeletal: Musculoskeletal: Denies back pain, Denies neck pain and Denies numbness Integumentary/Breasts: Skin/Breast: Denies dry skin Neurologic: Reports Normal hearing present, Denies confusion, Denies headache(s), Denies numbness and Denies weakness Psychiatric: Psychiatric: Denies anxiety and Denies confusion Endocrine: Endocrine: Denies fatigue and Denies flushing Hematologic/Lymphatic: Hematologic/Lymphatic: Denies easy bleeding and Denies easy bruising Allergic/Immunologic: Allergic/Immunologic: Denies GI upset with certain foods Exam Narrative: Alert oriented appears stated age Const: General: comfortable and no acute distress; No confusion Orientation/consciousness: No confusion HENMT: General nose exam: Normal nares present Eyes: Sclera: sclerae normal Neck: Neck: supple and no JVD Chest: Other: Were no reproducible chest wall pain to palpation Resp: Auscultation: clear to auscultation bilaterally Cardio: Rate: regular rate Rhythm: regular rhythm Heart sounds: Murmur heart sound present GI: Inspection: no edema Skin: General skin exam: normal color Neuro: General: No confusion Cranial nerves: Yes Normal hearing present Cognition (Neuro): normal cognition Speech: normal speech Extrem: General: normal to inspection and no edema Psych: Mental Status: mental status grossly normal Objective Data Vital Signs Vital Signs: Vital Signs - 24 hr 06/03/21 11:33 06/03/21 13:46 06/03/21 13:55 Temperature 37.2 C 37.0 C Pulse Rate 66 66 68 Respiratory Rate 12 16 Blood Pressure 140/71 118/54 L 104/54 L Pulse Oximetry 99 98 100 06/03/21 14:10 06/03/21 14:25 06/03/21 14:40 Temperature Pulse Rate 69 76 76 Respiratory Rate 16 16 16 Blood Pressure 109/58 L 106/55 L 104/58 L Pulse Oxime
--- NOTE | 2021-06-04 11:00 | PM.DS ---
DS: Admitting Diagnosis Admitting Diagnosis Acute cholecystitis, coronary artery disease, long-term anti-platelet therapy DS: Discharge Diagnosis Discharge Diagnosis (1) Acute cholecystitis: Code(s): K81.0 - Acute cholecystitis Status: Acute (2) CAD (coronary artery disease): Qualifiers: Coronary Disease-Associated Artery/Lesion type: [place] artery [place] vs. transplanted heart: [place] heart Associated angina: without angina Qualified Code(s): I25.10 - Atherosclerotic heart disease of [place] coronary artery without angina pectoris Code(s): I25.10 - Atherosclerotic heart disease of [place] coronary artery without angina pectoris Status: Acute (3) care home (current) use of antithrombotics/antiplatelets: Code(s): Z79.02 - care home (current) use of antithrombotics/antiplatelets Status: Acute DS: Summary Hospital Course Reason for hospitalization: acute cholecystitis. Hospital Course: This is a 71-year-old man who presented to the emergency department on 06/02/2021 with complaints of right upper quadrant abdominal pain. He was hemodynamically stable in the emergency department, white blood count was normal, and liver enzymes were normal. Gallbladder ultrasound was obtained initially and this was read as normal. He then had a CT of his abdomen and pelvis obtained which showed evidence of a distended gallbladder and some gallbladder wall thickening with pericholecystic fluid. Patient was admitted for further treatment. He was placed on IV antibiotics. Follow-up labs on 06/03/2021 were normal. He was feeling somewhat better on 06/03, but he still did have some tenderness to palpation. He was on aspirin and Plavix, and discussions were made with the patient's that he is slightly increased risk of bleeding with surgery, but risks of not proceeding with surgery could lead to worsening gallbladder complications. Cardiology was consulted for preoperative cardiac clearance. He was found to have no reasons for further cardiac workup based on a previous normal cardiac catheterization and no new onset of cardiac symptoms. He then underwent laparoscopic cholecystectomy on 06/03/2021. He was kept overnight after the surgery and his diet and activity were slowly advanced as tolerated. On 06/04, his pain was well controlled, he was ambulating in halls, vitals were stable, and he was tolerating a low-fat diet. He was then discharged on 06/04. Status at Discharge Functional status at discharge: independent ambulation Overall status at discharge: patient is progressing back to baseline Time Spent with Patient Time attestation: Total time spent providing and/or coordinating discharge services: Time spent: Less than 30 minutes Exam Const: General: no acute distress and alert Orientation/consciousness: patient oriented x3 GI: Inspection: normal to inspection and incision ( Intact with glue.) GI Palp: No abdominal tenderness and No Guarding due to palpation present (GI) Auscultation: normal bowel sounds DS: Data Data Completed and Pending Completed studies during hospitalization: Pending at discharge 06/03/21 12:36 Surgical [PTH] Routine Imaging Radiologist's impression: ITS Impressions Upper Quadrant Ultrasound 06/02/21 08:39 IMPRESSION: 1. Normal gallbladder. No etiology for the positive sonographic Pal sign. 2. Diffuse hepatic steatosis. Abdomen/Pelvis CT 06/02/21 09:39 IMPRESSION: 1. Gallbladder dilated to 4.5 cm with small amount pericholecystic stranding and fluid consistent with likely early acute cholecystitis. 2. Trace amount of gas in the nondependent bladder. Correlate with urinalysis and for recent instrumentation or Lopez catheterization. 3. Diffuse hepatic steatosis. 4. Mild sigmoid diverticulosis. 5. Prostatomegaly. Discharge Plan Discharge Attending physician on discharge: Damian Vasquez Consulting providers: Yenny Estrella
[2021-06-04 11:21] VITALS: PULSE 54
[2021-06-04] MEDS: ASPIRIN 81 MG ENTERIC TABLET PO (11:21)
[2021-06-04] MEDS: ROSUVASTATIN 10 MG TABLET 40 MG PO (11:21)
[2021-06-04] MEDS: hydroCHLOROthiazide 25 MG TABLET PO (11:21)
[2021-06-04] MEDS: atenoloL 25 MG TABLET PO (11:21)
[2021-06-04] MEDS: LOSARTAN POTASSIUM 100 MG TABLET PO (11:21)
== END 2021-06-04 12:31 | disposition home or self-care (01) | DRG 419 ==
LOC: ANHED 12:57 → ANH3MEDSUR 13:32 → ANH3MED 17:35
PROVIDERS: Admitting Provider Surgery; Emergency Provider Family Medicine; PCP Internal Medicine; Visit Provider Surgery
PROC: 0FT44ZZ Resection of Gallbladder, Percutaneous Endoscopic Approach (ICD-10-PCS; CPT 47562; principal; 2021-06-03 12:00)
DX: K81.0 Acute cholecystitis (principal); I10 Essential (primary) hypertension; K21.9 Gastro-esophageal reflux disease without esophagitis; I25.10 Atherosclerotic heart disease of native coronary artery without angina pectoris; Z95.1 Presence of aortocoronary bypass graft; Z79.82 Long term (current) use of aspirin; G47.33 Obstructive sleep apnea (adult) (pediatric); Z87.891 Personal history of nicotine dependence; E87.6 Hypokalemia; E78.00 Pure hypercholesterolemia, unspecified; Z98.61 Coronary angioplasty status; Z85.51 Personal history of malignant neoplasm of bladder; I50.9 Heart failure, unspecified; N40.0 Benign prostatic hyperplasia without lower urinary tract symptoms; I11.0 Hypertensive heart disease with heart failure; I25.2 Old myocardial infarction; E66.9 Obesity, unspecified; Z68.31 Body mass index [BMI] 31.0-31.9, adult; F32.9 Major depressive disorder, single episode, unspecified
CPT/HCPCS: 36415; 74177; 76705; 80048; 80053; 81001; 82948; 83690; 85025; 85027; 86850; 86900; 86901; 87086; 88304; 93005; 96361; 96365; 96375; 99285; A9270; G0378; J0330; J0690; J1100; J1335; J2270; J2405; J2704; J2710; J3010; J7030; J7120; Q9967

== ENCOUNTER 2021-12-23 10:30 | Outpatient (RCR) | payer MEDICARE, OTHER, SELFPAY ==
[2021-11-20 14:47] VITALS: BMI 32.9
[2021-11-20 14:58] VITALS: BMI 32.9
== END 2022-02-10 10:18 | disposition home or self-care (01) ==
LOC: ANHDMC 10:30
PROVIDERS: PCP Internal Medicine; Visit Provider Internal Medicine
DX: E11.9 Type 2 diabetes mellitus without complications (principal); Z71.3 Dietary counseling and surveillance; Z71.89 Other specified counseling
CPT/HCPCS: 97802; G0108

== ENCOUNTER 2022-04-01 14:30 | Outpatient (RCR) | payer MEDICARE, OTHER, SELFPAY | END 2022-06-09 10:33 | disposition home or self-care (01) | LOC: ANHDMC 14:30 | PROVIDERS: PCP Internal Medicine; Visit Provider Internal Medicine | DX: E11.9 Type 2 diabetes mellitus without complications (principal); Z71.89 Other specified counseling | CPT/HCPCS: G0109 ==

== ENCOUNTER 2022-07-30 14:31 | Outpatient (RCR) | payer MEDICARE, OTHER, SELFPAY | END 2022-07-30 16:33 | disposition home or self-care (01) | LOC: ANHDMC 14:31 | PROVIDERS: PCP Internal Medicine; Visit Provider Internal Medicine | DX: E11.9 Type 2 diabetes mellitus without complications (principal); Z71.3 Dietary counseling and surveillance; Z71.89 Other specified counseling | CPT/HCPCS: G0109 ==